=== PATIENT | female | born 1965 | race Caucasian/White ===

== ENCOUNTER → 2020-05-01 | Outpatient (CLI) | payer BC ==
--- NOTE | 2020-05-01 13:25 | US ---
EXAM DESCRIPTION: Venous,Lower Extremity LT: ULTRASOUND. CLINICAL HISTORY: PAIN,SWELLING LEFT CALF COMPARISON: None Available. TECHNIQUE: Beltrán-scale and doppler sonographic evaluation of the deep venous system of the left lower extremity. FINDINGS: Doppler evaluation shows echogenic thrombus in the left superficial femoral vein extending inferior into the remainder of the femoral vein, the left popliteal vein, left peroneal vein, and the posterior tibial vein. Limited color flow and Doppler venous waveforms. Limited or no compression. Tender with compression. Normal color flow and normal phasicity and augmentation of the left common femoral vein, and left greater saphenous vein, junction with the CFV. These lower extremity deep veins were completely compressible; normal occlusion with transducer pressure. Beltrán-scale survey showed no echogenic thrombus within these veins. IMPRESSION: 1. Duplex ultrasound evaluation of the left lower extremity deep venous system showing partial thrombosis involving the left femoral vein down to the left posterior tibial vein. 2. No thrombosis with normal Doppler and grayscale compression in the left common femoral vein and the junction with the left greater saphenous vein. Electronically signed by: Mathew Alexandra MD 05/01/2020 1:23 PM CDT
== END ==
LOC: US 11:23
PROVIDERS: ATTEND Nurse Practitioner Family
DX: I82.412 Acute embolism and thrombosis of left femoral vein (principal)